=== PATIENT | male | born 1990 | race Caucasian/White ===

== ENCOUNTER 2022-04-07 00:51 | Emergency (ER) | payer SELFPAY ==
[~2022-04-07] VITALS: Ht 175.3 cm; Wt 59.0 kg
--- NOTE | 2022-04-07 01:18 | NUR ---
pt ambulated to room 5a c/o r arm pain and right ankle pain.
--- NOTE | 2022-04-07 01:21 | NUR ---
dr. bagley at bedside for mse.
[2022-04-07] MEDS ORDERED: ACETAMINOPHEN ES 500 MG TABLET ONE (01:26)
[2022-04-07] MEDS ORDERED: ACETAMINOPHEN ES 500 MG TABLET PO ONE (01:30)
--- NOTE | 2022-04-07 02:14 | NUR ---
Patient given written and verbal discharge instructions. Patient verbalizes understanding of instructions. Patient is ambulatory with steady gait. Refuses offer of senior living placement. Patient given list of available shelters in surrounding area. Patient is a/ox4, NAD noted. Patient is able to walk with steady gait
[2022-04-07 02:18] VITALS: BP 130/80
== END 2022-04-07 02:20 | disposition home or self-care (01) ==
LOC: ER 01:09
DX: S50.01XA Contusion of right elbow, initial encounter (principal); V03.90XA Pedestrian on foot injured in collision with car, pick-up truck or van, unspecified whether traffic or nontraffic accident, initial encounter; Y92.89 Other specified places as the place of occurrence of the external cause; Z59.00 Homelessness unspecified; F17.210 Nicotine dependence, cigarettes, uncomplicated; S82.891S Other fracture of right lower leg, sequela; M21.961 Unspecified acquired deformity of right lower leg; X58.XXXS Exposure to other specified factors, sequela
CPT/HCPCS: 73080; A4663; A9150